=== PATIENT | male | born 1965 | race Caucasian/White ===

== ENCOUNTER 2016-04-07 11:21 | Emergency (ER) | payer OTHER ==
[~2016-04-07] VITALS: Ht 182.9 cm; Wt 83.9 kg
[2016-04-07 11:41] VITALS: BP 114/68
== END 2016-04-07 13:16 | disposition home or self-care (01) ==
LOC: ER 11:23
DX: S90.31XA Contusion of right foot, initial encounter (principal); W23.0XXA Caught, crushed, jammed, or pinched between moving objects, initial encounter; Y93.89 Activity, other specified; Y92.89 Other specified places as the place of occurrence of the external cause; Y99.9 Unspecified external cause status
CPT/HCPCS: 73630; 99284; A4606; Z7610